=== PATIENT | female | born 1940 | race Caucasian/White ===

== ENCOUNTER 2022-03-10 09:12 | Outpatient (CLI) | payer MEDICARE, OTHER, SELFPAY ==
--- NOTE | 2022-03-10 | ECHO_ITS ---
Patient Info Name: Lauren Ortiz Age: 82 years : 1940 Gender: Female Ht: 61 in Wt: 212 lbs BSA: 2.09 m2 HR: 86 bpm BP: 216 / 118 mmHg Heart Rhythm: Sinus Rhythm Exam Date: 03/10/2022 10:14 AM Exam Location: [facility] Patient Status: Outpatient Admit Date: 03/10/2022 Staff Ordering Physician: Jasmine Chopra MD Food Technician: Geremias Allan RDCS Attending Provider: Jasmine Chopra MD Referring Physician: Keysha VASQUEZ; Exam Type: CA echo doppler color flow Study Info Indications - aortic murmur Complete two-dimensional, color flow and Doppler transthoracic echocardiogram is performed. Summary 1. Complete two-dimensional, color flow and Doppler transthoracic echocardiogram is performed. 2. Left ventricular chamber dimension is normal. 3. Left ventricular systolic function is normal, estimated at 55-60%. 4. There is mildly increased left ventricular wall thickness. 5. The left ventricular diastolic function is grade I diastolic dysfunction. 6. There is mild aortic valve stenosis with a peak velocity of 207 cm/s, mean gradient of 11 mmHg, and aortic valve area of 1.6 cm2. 7. There is trace tricuspid valve regurgitation. 8. Unable to estimate PA systolic pressure due to poor spectral resolution of tricuspid regurgitant jet velocity. 9. There is no mitral valve regurgitation. 10. There is no aortic valve regurgitation. 11. Technically difficult study with limited views. Left Ventricle Left ventricular chamber dimension is normal. Left ventricular systolic function is normal, estimated at 55-60%. There is mildly increased left ventricular wall thickness. The left ventricular diastolic function is grade I diastolic dysfunction. Right Ventricle Right ventricular chamber dimension is normal. Right ventricular systolic function is normal. Left Atria Left atrial chamber dimension is mildly enlarged. Right Atria Right atrial chamber dimension is normal. Aortic Valve The aortic valve is not well visualized. There is mild aortic valve stenosis with a peak velocity of 207 cm/s, mean gradient of 11 mmHg, and aortic valve area of 1.6 cm2. There is no aortic valve regurgitation. Pulmonic Valve The pulmonic valve is not well visualized. Mitral Valve The mitral valve has thickened leaflets. There is no mitral valve regurgitation. The mitral valve annulus is mildly calcified. Tricuspid Valve The tricuspid valve leaflets are normal. There is trace tricuspid valve regurgitation. Unable to estimate PA systolic pressure due to poor spectral resolution of tricuspid regurgitant jet velocity. Pericardium/Pleural The pericardium appears normal. There is trivial pericardial effusion. Inferior Vena Cava Normal inferior vena cava with >50% collapse upon inspiration consistent with normal right atrial pressure, 5 mmHg. Aorta The aortic root size at the sinus of Valsalva is normal. There is mild aortic atherosclerosis. Left Ventricular Outflow Tract Name Value Normal LVOT 2D LVOT Diameter 2.0 cm LVOT Doppler LVOT Peak Gradient 4 mmHg LVOT Mean Gradie
== END 2022-03-10 09:13 | disposition home or self-care (01) ==
LOC: ANHCARD 09:16
PROVIDERS: PCP Otolaryngology
DX: I35.8 Other nonrheumatic aortic valve disorders (principal)
CPT/HCPCS: 93306

== ENCOUNTER → 2022-03-16 09:22 | Outpatient (CLI) | payer MEDICARE, OTHER, SELFPAY ==
--- NOTE | ~2022-03-16 | MR_ITS ---
EXAMINATION: MR brain/brain stem wo con DATE: 03/16/2022 10:05 INDICATION: Dizziness. Confusion. TECHNIQUE: Magnetic resonance imaging (MRI) of the brain and brainstem was performed without intraven ous contrast. COMPARISON: Head CT 02/24/2014 FINDINGS: There are scattered areas of nonspecific increased T2-weighted signal intensity in the cere bral white matter. There is no intracranial hemorrhage, acute infarction, or abnormal intracranial ma ss lesion. The ventricles are normal in size. There are likely changes of ocular lens replacement shanda geries. There is mild mucosal thickening in the paranasal sinuses. There are small bilateral mastoid effusions. IMPRESSION: 1. Moderate nonspecific cerebral white matter disease, which likely represents chronic small vessel i schemic disease. Reviewed, dictated and finalized at location A. IMPRESSION: 1. Moderate nonspecific cerebral white matter disease, which likely represents chronic small vessel ischemic disease.
== END ==
DX: R42 Dizziness and giddiness (principal); R41.0 Disorientation, unspecified; E01.0 Iodine-deficiency related diffuse (endemic) goiter; R93.0 Abnormal findings on diagnostic imaging of skull and head, not elsewhere classified
CPT/HCPCS: 70551

== ENCOUNTER → 2022-03-17 12:52 | Outpatient (CLI) | payer MEDICARE, OTHER, SELFPAY ==
--- NOTE | ~2022-03-17 | US_ITS ---
EXAMINATION: US thyroid DATE: 03/17/2022 13:29 INDICATION: Goiter. TECHNIQUE: Multiple ultrasound images of the thyroid were obtained. COMPARISON: Chest CT 11/18/15 FINDINGS: The right thyroid lobe measures 6.8 x 2.9 x 2.9 cm. The left thyroid lobe measures 7.4 x 3.4 x 3.0 c m. The thyroid demonstrates diffusely heterogeneous hypoechogenicity and is filled with ill-defined nodules of similar ultrasound appearance. Vascularity is normal. IMPRESSION: 1. Chronic multinodular goiter, likely not clinically significant. Reviewed, dictated and finalized at location A.
== END ==
DX: E01.0 Iodine-deficiency related diffuse (endemic) goiter (principal)
CPT/HCPCS: 76536

== ENCOUNTER 2022-06-03 15:23 | Emergency (ER) | payer MEDICARE, OTHER, SELFPAY ==
[2022-06-03 15:41] VITALS: BP 126/76; PULSE 92; RESP 16; TEMP 36.3; O2SAT 98
[2022-06-03 15:42] VITALS: BP 126/76; PULSE 92; RESP 16; TEMP 36.3; O2SAT 98
--- NOTE | 2022-06-03 15:44 | ED.EYEPROB ---
HPI - Eye Problem General Chief complaint: Eye Problems Stated complaint: Left Eye Irritation Time Seen by Provider: 06/03/22 15:40 Source: patient Mode of arrival: ambulatory Limitations: no limitations History of Present Illness HPI Narrative: Lauren is an 82-year-old female patient presenting to clinic today with complaints of left eye infection. She reports her cat ran over her face on Tuesday and possibly scratched the corner of her eyelid. States that the area is red and swollen now and she is having some yellowish discharge coming from the left eye. Related Data Home Medications Medication Instructions Recorded Confirmed albuterol sulfate 90 mcg/actuation inhalation 06/03/22 aerosol inhaler amlodipine 10 mg tablet mg 06/03/22 hydrochlorothiazide 12.5 mg capsule mg 06/03/22 metoprolol succinate 25 mg mg PO 06/03/22 tablet,extended release 24 hr olmesartan 40 mg tablet mg 06/03/22 Allergies Allergy/AdvReac Type Severity Reaction Status Date / Time poison kathy extract Allergy Severe Other Verified 06/03/22 15:41 verapamil Allergy Intermediate Other Verified 06/03/22 15:41 Careless [place] Allergy Mild POISON KATHY Uncoded 06/03/22 15:41 AND [place] Review of Systems Review of Systems: Pertinent positives per HPI. Patient denies any fever, chills, rash, headache, visual changes, dizziness, cough, runny nose, sore throat, shortness of breath, chest pain, palpitations, nausea, vomiting, diarrhea, constipation, abdominal pain, or any urinary issues. [facility] Family History Family History Father Family history of malignant neoplasm Other Family history of arthritis Social History Social History Smoking status: Never smoker Second hand tobacco smoke exposure: No Alcohol intake: never Comments At the time of my signature, I reviewed and agree with the nursing past medical, surgical, social, and family history. There is no relevant family history pertinent to the patient complaint. Exam Narrative: General: Well-developed, well nourished, in no apparent distress Head: Normocephalic, atraumatic Eyes: Pupils equally round and reactive to light bilaterally, EOM intact, right sclera and conjunctive clear, left sclera and conjunctiva injected with yellow mucopurulent discharge, surrounding redness and mild swelling around the orbit. Ears: TMs intact and clear, ear canals clear, no drainage, grossly hearing normal. Nose: Nares patent, no discharge, no inflammation, no sinus tenderness. Mouth: Oropharynx without lesions or masses, good dentition, MMM. Neck: Supple, trachea midline, no enlargement of anterior or posterior cervical nodes, no thyroid masses or goiter palpable. Cardio: Regular rate and rhythm, s1 and s2 normal, no murmur appreciated. Resp: Clear to auscultation bilaterally anteriorly and posteriorly, no rhonchi, rales, wheezing or rubs Course Course Emergency Course: Portions of this record may have been created with voice recognition software. Level of Care: Express Care Visit Vital Signs Vital signs: Vital Signs Temperature 36.3 C L 06/03/22 15:41 Pulse Rate 92 06/03/22 15:41 Respiratory Rate 16 06/03/22 15:41 Blood Pressure 126/76 06/03/22 15:41 Pulse Oximetry 98 06/03/22 15:41 Oxygen Delivery Room Air 06/03/22 15:41 Temperature 36.3 C L 06/03/22 15:42 Pulse Rate 92 06/03/22 15:42 Respiratory Rate 16 06/03/22 15:42 Blood Pressure 126/76 06/03/22 15:42 Pulse Oximetry 98 06/03/22 15:42 Oxygen Delivery Room Air 06/03/22 15:42 Vital signs reviewed MDM - Eye Problem MDM Narrative Medical decision making narrative: At the time of visit patient is resting comfortably on the exam table. I suspect patient has periorbital cellulitis with conjunctivitis of the left eye. Prescription for Augmentin and ofloxacin ey
== END 2022-06-03 15:55 | disposition home or self-care (01) ==
PROVIDERS: Emergency Provider Nurse Practitioner Family
DX: L03.213 Periorbital cellulitis (principal); H10.9 Unspecified conjunctivitis; E78.00 Pure hypercholesterolemia, unspecified; I10 Essential (primary) hypertension; E11.9 Type 2 diabetes mellitus without complications
CPT/HCPCS: 99213; G0463

== ENCOUNTER 2022-07-27 10:56 | Outpatient (CLI) | payer MEDICARE, OTHER, SELFPAY ==
[2022-07-27 18:42] LABS: Free T4 Free Thyroxine 1.54 ng/mL (0.78-2.19)
[2022-07-30 04:50] LABS: Triiodothyronine T3 Free 3.5 pg/mL (2.3-4.2)
[2022-07-30 14:31] LABS: Thyroid Stimulating Immunoglob 101 % baseline (<140)
== END 2022-07-27 10:57 | disposition home or self-care (01) ==
LOC: ANHWCLAB 10:58
PROVIDERS: Visit Provider Internal Medicine Endocrinology, Diabetes & Metabolism
DX: E05.90 Thyrotoxicosis, unspecified without thyrotoxic crisis or storm (principal); E11.9 Type 2 diabetes mellitus without complications; E04.9 Nontoxic goiter, unspecified
CPT/HCPCS: 36415; 83036; 84439; 84443; 84445; 84481